=== PATIENT | female | born 2000 | race Hispanic/Latino ===

== ENCOUNTER 2019-07-30 18:57 | Emergency (ER) | payer OTHER ==
[2019-07-30] MEDS ORDERED: ONDANSETRON ODT 4 MG TAB ONE (19:13)
[2019-07-30] MEDS ORDERED: ACETAMINOPHEN EXTRA STRENGTH 500 MG TABLET ONE (19:18)
[2019-07-30 20:48] LABS: APPEARANCE,URINE Clear (CLEAR); BILIRUBIN,URINE Negative (NEGATIVE); COLOR,URINE Yellow (YELLOW); GLUCOSE, URINE (UA) Negative (NEGATIVE); KETONES,URINE Negative (NEGATIVE); LEUKOCYTE ESTERASE ,URINE Negative (NEGATIVE); NITRATE,URINE Negative (NEGATIVE); OCCULT BLOOD,URINE Negative (NEGATIVE); PROTEIN,URINE Negative (NEGATIVE); UROBILINOGEN,URINE 0.2 mg/dL (0.2-1.0)
[2019-07-30 20:55] LABS: HCG,QUAL RESULT NEGATIVE (NEGATIVE)
== END 2019-07-30 21:23 | disposition home or self-care (01) ==
LOC: EDH 18:57
DX: J06.9 Acute upper respiratory infection, unspecified (principal); R50.9 Fever, unspecified; E28.2 Polycystic ovarian syndrome
CPT/HCPCS: 81003; 81025; 87804

== ENCOUNTER 2021-06-14 05:07 | Inpatient (IN) | payer MEDICAID ==
[~2021-06-14] VITALS: Ht 148.6 cm; Wt 93.0 kg
[2021-06-14] MEDS ORDERED: LACTATED RINGERS 1000ML 1,000 ML IV PRN (05:30)
[2021-06-14] MEDS ORDERED: NALOXONE HCL 0.4 MG/1 ML ML IV PRN (05:30)
[2021-06-14] MEDS ORDERED: EPHEDRINE SULFATE 50 MG/ML AMPULE IVP PRN (05:30)
[2021-06-14] MEDS ORDERED: PROMETHAZINE HCL 25 MG/ML 1ML AMPULE IM PRN ×2 (05:30→20:30)
[2021-06-14] MEDS ORDERED: MEPERIDINE-PF 50 MG/ML SYG IVP PRN (05:30)
[2021-06-14] MEDS ORDERED: ROPIVACAINE 0.2% 100ML VIAL 100 ML EP PRN (05:30)
[2021-06-14] MEDS ORDERED: LACTATED RINGERS 500 ML 500 ML IV PRN (05:30)
[2021-06-14] MEDS ORDERED: OXYTOCIN-LR 20 UNITS/1000 ML 1,000 ML IV SCH (06:00)
[2021-06-14 06:18] LABS: HEMATOCRIT 31.5 % (36-48); MEAN CORPUSCULAR HEMOGLOBIN 24.7 pg (27.0-33.0); MEAN CORPUSCULAR HGB CONC 30.8 g/dL (32.0-36.0); MEAN CORPUSCULAR VOLUME 80.2 fL (80-100); PLATELET COUNT (AUTO) 219 K/uL (130-400); RED BLOOD CELL COUNT(AUTO) 3.93 MIL/uL (4.00-5.50); RED CELL DISTRIBUTION WIDTH 18.5 % (11.0-15.5); WHITE BLOOD COUNT (AUTO) 7.4 K/uL (4.8-10.8)
[2021-06-14 06:19] LABS: APPEARANCE,URINE Cloudy (CLEAR); BILIRUBIN,URINE Negative (NEGATIVE); COLOR,URINE Yellow (YELLOW); GLUCOSE, URINE (UA) Negative (NEGATIVE); KETONES,URINE Negative (NEGATIVE); LEUKOCYTE ESTERASE ,URINE Trace (NEGATIVE); NITRATE,URINE Negative (NEGATIVE); OCCULT BLOOD,URINE Negative (NEGATIVE); PH,URINE 6.5 (5.0-8.0); PROTEIN,URINE Trace mg/dL (NEGATIVE)
[2021-06-14 06:38] LABS: BACTERIA,URINE Rare /HPF (None Seen); RBC,URINE 0-1 /HPF (0-1); SQUAMOUS EPITHELIAL CELL,UR Few /HPF (0-2); WBC,URINE 0-1 /HPF (0-1)
[2021-06-14 07:04] VITALS: BP 109/70
[2021-06-14] MEDS ORDERED: PREN1TAB80 PO (07:07)
[2021-06-14] MEDS ORDERED: 0.9%NACL 10ML VIAL ONE (15:37)
[2021-06-14] MEDS ORDERED: CEFAZOLIN SODIUM 1 GM VIAL ONE (15:37)
[2021-06-14] MEDS ORDERED: MORPHINE PF 100MG/10ML AMP IV ONE (15:50)
[2021-06-14] MEDS ORDERED: CEFAZOLIN SODIUM 1 GM VIAL IVP ONE (15:54)
[2021-06-14] MEDS ORDERED: EPHEDRINE SULFATE 50 MG/ML AMPULE ONE (15:57)
[2021-06-14] MEDS ORDERED: ONDANSETRON 4MG INJ ONE (15:59)
[2021-06-14] MEDS ORDERED: LACTATED RINGERS 1000ML 1,000 ML IV SCH (16:00)
[2021-06-14] MEDS ORDERED: CALDOLOR 800MG+NS 250ML 250 ML IV PRN (16:00)
[2021-06-14] MEDS ORDERED: CEFAZOLIN SODIUM 1 GM VIAL IVP PRN (16:00)
[2021-06-14] MEDS ORDERED: OXYTOCIN 10 USP UNITS/ML ONE ×3 (16:06→16:15)
[2021-06-14] MEDS ORDERED: METHYLERGONOVINE MALEATE 0.2 MG/1 ML ML IM ONE (16:08)
[2021-06-14] MEDS ORDERED: OXYTOCIN 10 UNIT/1ML 10ML VIAL ONE (16:15)
[2021-06-14] MEDS ORDERED: MISOPROSTOL 200 MCG TABLET PR ONE (16:18)
[2021-06-14] MEDS ORDERED: CARBOPROST TROMETHAMINE 250 MCG/ML AMP IM ONE ×2 (16:18→16:20)
[2021-06-14] MEDS ORDERED: ONDANSETRON 4MG INJ IVP PRN (18:00)
[2021-06-14] MEDS ORDERED: DiphenhydrAMINE HCL 50 MG/ML VIAL IVP PRN (18:00)
[2021-06-14] MEDS ORDERED: KETOROLAC 30MG VIAL (30MG/ML) IV PRN (18:00)
[2021-06-14] MEDS ORDERED: NALOXONE HCL 0.4 MG/1 ML ML IVP PRN ×3 (18:00)
[2021-06-14 20:12] LABS: HEMATOCRIT 25.6 % (36-48)
[2021-06-14] MEDS ORDERED: METHYLERGONOVINE MALEATE 0.2 MG/1 ML ML IM SCH (20:30)
[2021-06-14] MEDS ORDERED: MISOPROSTOL 100 MCG TABLET PR SCH (20:30)
[2021-06-14] MEDS ORDERED: CARBOPROST TROMETHAMINE 250 MCG/ML AMP IM SCH (20:30)
[2021-06-14] MEDS ORDERED: OXYTOCIN-LR 20 UNITS/1000 ML 1,000 ML IV PRN (20:30)
[2021-06-14] MEDS ORDERED: 0.9%NACL 10ML VIAL IVP PRN (20:30)
[2021-06-14] MEDS ORDERED: MEPERIDINE-PF 75 MG/ML SYG IM PRN (20:30)
[2021-06-14] MEDS: DEXTROSE 5 %-0.45 % NACL 1,000 ML IV PRN (20:48)
[2021-06-14 20:57] VITALS: BP 121/73
[2021-06-14] MEDS ORDERED: DIPH,PERTUSS(ACELL),TET VAC/PF 0.5 ML VIAL IM ONE (23:30)
[2021-06-15] VITALS (7 sets, daily range): BP systolic 98–132; BP diastolic 52–73
[2021-06-15] MEDS: DEXTROSE 5 %-0.45 % NACL 1,000 ML IV PRN (03:29)
[2021-06-15] MEDS ORDERED: DIPH,PERTUSS(ACELL),TET VAC/PF 0.5 ML VIAL IM ONE (03:30)
[2021-06-15 05:12] LABS: HEPATITIS Bs ANTIGEN SCREEN P Negative (Negative)
[2021-06-15 06:16] LABS: MEAN CORPUSCULAR HGB CONC 30.7 g/dL (32.0-36.0); MEAN CORPUSCULAR VOLUME 81.5 fL (80-100); RED BLOOD CELL COUNT(AUTO) 2.48 MIL/uL (4.00-5.50); RED CELL DISTRIBUTION WIDTH 18.6 % (11.0-15.5); WHITE BLOOD COUNT (AUTO) 9.6 K/uL (4.8-10.8)
[2021-06-15 06:25] LABS: HEMATOCRIT 20.2 % (36-48)
[2021-06-15] MEDS ORDERED: HYDROCODONE/ACETAMINOPHEN 5/325 MG TAB PO PRN (17:30)
[2021-06-15] MEDS ORDERED: ACETAMINOPHEN WITH CODEINE 1 TAB TAB PO PRN (17:30)
[2021-06-15] MEDS ORDERED: BISACODYL 10 MG SUPP.RECT RC PRN (17:30)
[2021-06-15] MEDS ORDERED: ACETAMINOPHEN 500 MG TABLET PO PRN (17:30)
[2021-06-15] MEDS ORDERED: LANOLIN 30GM OINTMENT TP PRN (17:30)
[2021-06-15] MEDS: SIMETHICONE 80 MG TAB.CHEW PO PRN ×2 (18:46→21:16)
[2021-06-15 21:07] LABS: HEMATOCRIT 28.3 % (36-48); MEAN CORPUSCULAR HEMOGLOBIN 26.7 pg (27.0-33.0); MEAN CORPUSCULAR HGB CONC 31.8 g/dL (32.0-36.0); RED BLOOD CELL COUNT(AUTO) 3.37 MIL/uL (4.00-5.50); RED CELL DISTRIBUTION WIDTH 17.8 % (11.0-15.5)
[2021-06-15] MEDS: DOCUSATE SODIUM 100 MG CAP PO SCH (21:16)
[2021-06-16] MEDS: IBUPROFEN 800 MG TAB PO SCH ×2 (01:23→09:14)
[2021-06-16 03:04] VITALS: BP 102/46
[2021-06-16 07:17] VITALS: BP 115/69
[2021-06-16] MEDS: SIMETHICONE 80 MG TAB.CHEW PO PRN ×2 (09:12→13:39)
[2021-06-16] MEDS: DOCUSATE SODIUM 100 MG CAP PO SCH (09:12)
[2021-06-16 11:35] VITALS: BP 112/58
[2021-06-16] MEDS ORDERED: FERS325 PO (14:44)
[2021-06-16] MEDS ORDERED: ACET1TAB25 PO (14:45)
== END 2021-06-16 15:55 | disposition home or self-care (01) | DRG 540 ==
LOC: LDH 05:07 → WSH 20:55
PROVIDERS: ADMIT Obstetrics & Gynecology; ATTEND Obstetrics & Gynecology
PROC: 30233N1 Transfusion of Nonautologous Red Blood Cells into Peripheral Vein, Percutaneous Approach (ICD-10-PCS; 2021-06-14)
PROC: 3E0234Z Introduction of Serum, Toxoid and Vaccine into Muscle, Percutaneous Approach (ICD-10-PCS; 2021-06-14)
PROC: 10D00Z1 Extraction of Products of Conception, Low, Open Approach (ICD-10-PCS; principal; 2021-06-14 15:50)
DX: O35.9XX0 Maternal care for (suspected) fetal abnormality and damage, unspecified, not applicable or unspecified (principal); O72.1 Other immediate postpartum hemorrhage; O77.9 Labor and delivery complicated by fetal stress, unspecified; O90.81 Anemia of the puerperium; D64.9 Anemia, unspecified; Z37.0 Single live birth; Z3A.39 39 weeks gestation of pregnancy; Z23 Encounter for immunization; Z91.018 Allergy to other foods
CPT/HCPCS: 36415; 36430; 59510; 76805; 81001; 85014; 85018; 85027; 86592; 86850; 86900; 86901; 86923; 87340; 90715; A4314; A4344; G0378; J0690; J1885; J2175; J2210; J2274; J2405; J2550; J2590; J3490; J7042; J7120; P9016

== ENCOUNTER 2021-06-21 22:27 | Emergency (ER) | payer MEDICAID ==
[~2021-06-21] VITALS: Ht 147.3 cm; Wt 84.8 kg
[~2021-06-21 22:27] MED LIST: ACET1TAB25 PO; FERS325 PO; PREN1TAB80 PO
[2021-06-21] MEDS ORDERED: 0.9%NACL 1000ML 1,000 ML IV ONE (23:00)
[2021-06-21] MEDS ORDERED: ACETAMINOPHEN 500 MG TABLET PO ONE (23:00)
[2021-06-21 23:07] LABS: BILIRUBIN,URINE Small (NEGATIVE); COLOR,URINE Dark Yellow (YELLOW); GLUCOSE, URINE (UA) Negative (NEGATIVE); KETONES,URINE Trace mg/dL (NEGATIVE); LEUKOCYTE ESTERASE ,URINE Moderate (NEGATIVE); NITRATE,URINE Negative (NEGATIVE); OCCULT BLOOD,URINE Large (NEGATIVE); PROTEIN,URINE POS 2+ mg/dL (NEGATIVE)
[2021-06-21 23:17] LABS: APPEARANCE,URINE HAZY (CLEAR)
[2021-06-21 23:22] LABS: BASOPHILS % (AUTO) 0.2 % (0.0-5.0); HEMATOCRIT 28.6 % (36-48); LYMPHOCYTES % (AUTO) 17.5 % (21.0-51.0); MEAN CORPUSCULAR HEMOGLOBIN 26.3 pg (27.0-33.0); MEAN CORPUSCULAR HGB CONC 31.1 g/dL (32.0-36.0); MEAN CORPUSCULAR VOLUME 84.4 fL (80-100); MONOCYTES % (AUTO) 7.4 % (3.0-13.0); NEUTROPHILS % (AUTO) 69.8 % (40.0-77.0); NUCLEATED RED BLOOD CELLS 0.5 % (0.0-0.19); PLATELET COUNT (AUTO) 226 K/uL (130-400); RED BLOOD CELL COUNT(AUTO) 3.39 MIL/uL (4.00-5.50); RED CELL DISTRIBUTION WIDTH 18.4 % (11.0-15.5); WHITE BLOOD COUNT (AUTO) 9.7 K/uL (4.8-10.8)
[2021-06-21 23:30] LABS: BACTERIA,URINE Moderate /HPF (None Seen); MUCUS,URINE Few LPF (None Seen)
[2021-06-21] MEDS ORDERED: CEFTRIAXONE 1G VIAL IVP ONE (23:30)
[2021-06-21 23:38] LABS: CREATININE 0.6 mg/dL (0.5-1.5); POTASSIUM 4.1 mmol/L (3.5-5.1)
[2021-06-21] MEDS ORDERED: ACET-2247 PO (23:40)
[2021-06-21] MEDS ORDERED: CEPH500B PO (23:40)
[2021-06-21 23:45] LABS: PLATELET MORPHOLOGY LARGE PLTS PRESENT
[2021-06-21 23:46] LABS: ALBUMIN 2.2 g/dL (3.5-5.0); BILIRUBIN,TOTAL 0.2 mg/dL (0.2-1.0); TOTAL PROTEIN, SERUM 6.9 g/dL (6.0-8.3)
[2021-06-22 00:10] VITALS: BP 135/70
== END 2021-06-22 00:03 | disposition home or self-care (01) ==
LOC: EDH 22:27
DX: O90.0 Disruption of cesarean delivery wound (principal); O86.20 Urinary tract infection following delivery, unspecified; E86.0 Dehydration
CPT/HCPCS: 36415; 80053; 81001; 83605; 85025; 87040 ×2; 87070; 87076; 87088; 96361; 96374; 99283; J0696; J7030

== ENCOUNTER 2023-12-12 13:58 | Emergency (ER) | payer BC, MEDICAID ==
[~2023-12-12] VITALS: Ht 149.9 cm; Wt 86.2 kg
[~2023-12-12 13:58] MED LIST changes: +ACET-2079 PO; +ACET-2247 PO; -ACET1TAB25 PO; +CEPH500B PO
[2023-12-12 15:13] LABS: HEMATOCRIT 33.6 % (36-48); MEAN CORPUSCULAR HEMOGLOBIN 26.6 pg (27.0-33.0); MEAN CORPUSCULAR HGB CONC 32.4 g/dL (32.0-36.0); RED BLOOD CELL COUNT(AUTO) 4.1 MIL/uL (4.00-5.50); RED CELL DISTRIBUTION WIDTH 15.1 % (11.0-15.5); WHITE BLOOD COUNT (AUTO) 6.7 K/uL (4.8-10.8)
[2023-12-12] MEDS: ACETAMINOPHEN 500 MG TABLET PO STA (15:17)
[2023-12-12 15:24] LABS: CREATININE 0.6 mg/dL (0.5-1.0)
[2023-12-12 15:28] LABS: ALBUMIN 3.3 g/dL (3.5-5.0); BILIRUBIN,TOTAL 0.3 mg/dL (0.2-1.0); TOTAL PROTEIN, SERUM 7.7 g/dL (6.0-8.3)
[2023-12-12 16:01] LABS: APPEARANCE,URINE CLEAR (CLEAR); BILIRUBIN,URINE NEGATIVE (NEGATIVE); COLOR,URINE COLORLESS (YELLOW); GLUCOSE, URINE (UA) NEGATIVE (NEGATIVE); KETONES,URINE NEGATIVE (NEGATIVE); LEUKOCYTE ESTERASE ,URINE NEGATIVE Leu/uL (NEGATIVE); NITRATE,URINE NEGATIVE (NEGATIVE); OCCULT BLOOD,URINE NEGATIVE (NEGATIVE); PH,URINE 6.5 (5.0-8.0); PROTEIN,URINE NEGATIVE (NEGATIVE); UROBILINOGEN,URINE 0.2 mg/dL (0.2-1.0)
[2023-12-12 16:03] LABS: ADD UA MICROSCOPIC NO; HCG,QUALITATIVE URINE POSITIVE (NEGATIVE)
[2023-12-12 16:09] VITALS: BP 121/61; PULSE 80; RESP 16; O2SAT 99
== END 2023-12-12 16:14 | disposition home or self-care (01) ==
LOC: EDH 13:58
DX: O02.0 Blighted ovum and nonhydatidiform mole (principal); O08.9 Unspecified complication following an ectopic and molar pregnancy; D64.9 Anemia, unspecified; E66.9 Obesity, unspecified; Z79.899 Other long term (current) drug therapy; Z98.890 Other specified postprocedural states; Z91.018 Allergy to other foods; Z3A.01 Less than 8 weeks gestation of pregnancy
CPT/HCPCS: 36415; 76817; 80053; 81003; 81025; 85027